=== PATIENT | female | born 1995 | race Caucasian/White ===

== ENCOUNTER 2021-08-11 18:13 | Outpatient (CLI) | payer SELFPAY ==
[~2021-08-11] VITALS: Ht 149.9 cm; Wt 66.5 kg
[2021-08-11 18:19] VITALS: BP 100/55
[2021-08-11 18:40] VITALS: BP 100/55
[2021-08-11 18:51] LABS: BILIRUBIN,URINE NEGATIVE (NEGATIVE); CLARITY,URINE CLEAR; COLOR,URINE YELLOW; GLUCOSE, URINE (UA) NEGATIVE (NEGATIVE); KETONES,URINE NEGATIVE (NEGATIVE); LEUKOCYTE ESTERASE ,URINE TRACE (NEGATIVE); NITRITE,URINE NEGATIVE (NEGATIVE); PH,URINE 7.5 (5-9); PROTEIN,URINE NEGATIVE (NEGATIVE)
[2021-08-11 19:16] LABS: BACTERIA,URINE TRACE /HPF; WBC,URINE 0-2 /HPF
[2021-08-11 19:48] LABS: AMPHETAMINE SCREEN, URINE NEGATIVE (NEGATIVE); BARBITURATE SCREEN URINE NEGATIVE (NEGATIVE); BENZODIAZEPINES SCREEN URINE NEGATIVE (NEGATIVE); CANNABINOID SCREEN, URINE POSITIVE (NEGATIVE); COCAINE SCREEN URINE NEGATIVE (NEGATIVE); METHADONE STAT NEGATIVE (NEGATIVE); METHAMPHETAMINE SCREEN URINE S NEGATIVE (NEGATIVE); OPIATE SCREEN URINE NEGATIVE (NEGATIVE); OXYCODONE STAT NEGATIVE (NEGATIVE); PROPOXYPHENE STAT NEGATIVE (NEGATIVE); TRICYCLIC ANTIDEPRESSANTS SCRE NEGATIVE (NEGATIVE)
[2021-08-11] MEDS ORDERED: DIPH25CA79 PO (20:02)
[2021-08-11] MEDS ORDERED: MELA1TAB20 PO (20:02)
--- NOTE | 2021-08-12 07:52 | Physician Query-Final Dx ---
DANIEL08/12/21 0752: Clinic Account Progress/Dx Physician Query: Please give diagnosis Please include # weeks gestation Date of Service Aug 11, 2021 at 18:13 JOVANA GALLEGOS DO 08/12/21 1319: Clinic Account Progress/Dx DIAGNOSIS: Diagnosis 31 weeks vaginal discharge DANIEL,JulAug 12, 2021 07:52 JOVANA GALLEGOS DO Aug 12, 2021 13:19
== END 2021-08-11 20:10 | disposition home or self-care (01) ==
LOC: LDRP 18:13 → WSo 18:13
PROVIDERS: ATTEND Family Medicine
DX: O34.63 Maternal care for abnormality of vagina, third trimester (principal); Z3A.31 31 weeks gestation of pregnancy
CPT/HCPCS: 80306; 81000; G0463; 99213

== ENCOUNTER 2021-09-05 18:59 | Outpatient (CLI) | payer MEDICAID ==
[~2021-09-05] VITALS: Ht 149.9 cm; Wt 67.5 kg
[~2021-09-05 18:59] MED LIST: DIPH25CA79 PO; MELA1TAB20 PO
[2021-09-05 19:32] VITALS: BP 106/59
[2021-09-05] MEDS ORDERED: PROM25AM11 IJ (19:44)
[2021-09-05] MEDS ORDERED: ONDANSETRON 4 MG (ZOFRAN) ORAL DISSOLVE TAB PO ONE (19:45)
[2021-09-05] MEDS ORDERED: ONDANSETRON 4 MG (ZOFRAN) ORAL DISSOLVE TAB ONE (19:45)
--- NOTE | 2021-09-08 08:06 | Physician Query-Final Dx ---
DANIEL,09/08/21 0806: Clinic Account Progress/Dx Physician Query: Please give diagnosis Please include # weeks gestation Date of Service Sep 05, 2021 at 18:59 RONNY PERALES DO 09/08/21 1003: Clinic Account Progress/Dx DIAGNOSIS: Diagnosis 32 week IUP Pelvic pressure DANIEL,JulSep 08, 2021 08:06 RONNY PERALES DO Sep 08, 2021 10:03
== END 2021-09-05 19:55 ==
LOC: LDRP 18:59 → WSo 18:59
PROVIDERS: ATTEND Obstetrics & Gynecology
DX: O26.893 Other specified pregnancy related conditions, third trimester (principal); Z3A.32 32 weeks gestation of pregnancy
CPT/HCPCS: 99212

== ENCOUNTER 2021-09-24 08:26 | Inpatient (IN) | payer MEDICAID ==
[~2021-09-24] VITALS: Ht 150 cm; Wt 70.8 kg
[2021-09-24] VITALS (35 sets, daily range): BP systolic 85–127; BP diastolic 42–74
[~2021-09-24 08:26] MED LIST changes: +PROM25AM11 IJ
[2021-09-24 09:20] LABS: BILIRUBIN,URINE NEGATIVE (NEGATIVE); CLARITY,URINE CLEAR; COLOR,URINE YELLOW; GLUCOSE, URINE (UA) NEGATIVE (NEGATIVE); KETONES,URINE NEGATIVE (NEGATIVE); LEUKOCYTE ESTERASE ,URINE NEGATIVE (NEGATIVE); NITRITE,URINE NEGATIVE (NEGATIVE); PROTEIN,URINE NEGATIVE (NEGATIVE)
[2021-09-24 09:32] LABS: BACTERIA,URINE NEGATIVE /HPF; WBC,URINE RARE /HPF
[2021-09-24] MEDS ORDERED: MINERAL OIL 30 ML OIL TOP PRN (09:45)
[2021-09-24] MEDS: D5 LR IV SOLUTION 1,000 ML IV SCH ×2 (10:27→11:32)
[2021-09-24] MEDS ORDERED: ONDANSETRON 4 MG/2 ML (SDV) Z0FRAN IVP PRN (10:45)
[2021-09-24] MEDS ORDERED: ONDANSETRON 4 MG/2 ML (SDV) Z0FRAN ONE (10:48)
--- NOTE | 2021-09-24 10:54 | History & Physical-OB ---
OB - Chief Complaint & HPI Date/Time Date of Admission: Date of Admission: Sep 24, 2021 at 9:17 am Date seen by a Provider: Sep 24, 2021 Time Seen by a Provider: 10:55 Chief Complaint/History OB-Reason for Admission/Chief: Onset of Labor Hx : 9 Hx Para: 7 Expected Date of Delivery: Oct 13, 2021 Gestational Age in Weeks: 37 Gestational Age in Days: 2 Admission Nurse Assessment Rev: Yes History of Labs A pos Antibody neg GBS neg Allergies and Home Medications Allergies Coded Allergies: adhesive tape (Verified Allergy, Unknown, 08/11/21) metoclopramide (Verified Allergy, Unknown, 08/11/21) Makes patient feel anxious Patient Home Medication List Home Medication List Reviewed: Yes Diphenhydramine HCl (Benadryl) 25 Mg Capsule, 50 MG PO HS, (Reported) Entered as Reported by: ANANTH PERRY on 08/11/212001 Promethazine HCl (Phenergan) 25 Mg/1 Ml Ampul, 25 MG IJ PRN, (Reported) Entered as Reported by: COTY MONTGOMERY on 09/05/211943 OB - History Hx of Present Care: Yes Ultrasounds: Normal mid trimester US Obstetrical Complications: None Medical Complications: None Other Concerns: late transfer of care, patient adopting out. Patient Past Medical History n/a Social History/Family History 2nd Hand Smoke Exposure: No OB - Admission Exam Physical Exam HEENT: NCAT Heart: Rhythm Normal Lungs: Clear Abdomen: Gravid Extremities: Normal Reflexes: Normal Cervical Dilatation: 5cm Effacement: 75% Station: -1 Membranes: Intact Heart Rate: 130's Accelerations: Accelerations Present Decelerations: No Decelerations Short Term Variability: Present Correction Variability: Average (6-25) Contractions on Admission: 6-10 Minutes Apart Intensity: Mild Labs Laboratory Tests Test 09/24/21 09:10 Range/Units Urine Color YELLOW Urine Clarity CLEAR Urine pH 6.0 5-9 Urine Specific [place] 1.020 1.016-1.022 Urine Protein NEGATIVE NEGATIVE Urine Glucose (UA) NEGATIVE NEGATIVE Urine Ketones NEGATIVE NEGATIVE Urine Nitrite NEGATIVE NEGATIVE Urine Bilirubin NEGATIVE NEGATIVE Urine Urobilinogen 0.2 < = 1.0 MG/DL Urine Leukocyte Esterase NEGATIVE NEGATIVE Urine RBC (Auto) 3+ H NEGATIVE Urine RBC 2-5 H /HPF Urine WBC RARE /HPF Urine Squamous Epithelial Cells 2-5 /HPF Urine Crystals NONE /LPF Urine Bacteria NEGATIVE /HPF Urine Casts NONE /LPF Urine Mucus NEGATIVE /LPF Urine Culture Indicated NO OB - Assessment/Plan/Diagnosis Assessment Assessment: active labor Admission Dx 25 yo @ 37.2 Active labor GBS neg Admission Status: Inpatient Order (span 2 midnights) Reason for Inpatient Admission: 37 week active labor Plan Plan: Expectant Management RONNY PERALES DO Sep 24, 2021 10:54 am
[2021-09-24 11:05] LABS: BASOPHILS % (AUTO) 0 % (0-10); EOSINOPHILS % (AUTO) 1 % (0-10); HEMATOCRIT 34 % (35-52); LYMPHOCYTES # (AUTO) 1.5 10^3/uL (1.0-4.0); LYMPHOCYTES % (AUTO) 22 % (12-44); MEAN CORPUSCULAR HEMOGLOBIN 24 pg (25-34); MEAN CORPUSCULAR HGB CONC 30 g/dL (32-36); MEAN CORPUSCULAR VOLUME 81 fL (80-99); MEAN PLATELET VOLUME 12.3 fL (9.0-12.2); MONOCYTES # (AUTO) 0.6 10^3/uL (0.0-1.0); MONOCYTES % (AUTO) 9 % (0-12); NEUTROPHILS # (AUTO) 4.4 10^3/uL (1.8-7.8); NEUTROPHILS % (AUTO) 67 % (42-75); PLATELET COUNT 179 10^3/uL (130-400); WHITE BLOOD COUNT 6.5 10^3/uL (4.3-11.0)
[2021-09-24] MEDS ORDERED: BUPIVACAINE 0.25% 30 ML (SENSORCAINE) VIAL ONE (11:21)
[2021-09-24] MEDS ORDERED: fentaNYL INJ 100 MCG/2 ML AMP ONE (11:21)
[2021-09-24] MEDS ORDERED: fentaNYL 2 mcg/ml BUPIVA 0.125 100 ML ONE (11:25)
[2021-09-24] MEDS ORDERED: fentaNYL 2 mcg/ml BUPIVA 0.125 100 ML IV SCH (12:00)
[2021-09-24] MEDS ORDERED: NALOXONE 0.4 MG/ML 1 ML (NARCAN) VIAL IV PRN (12:00)
[2021-09-24] MEDS ORDERED: CATHETER FLUSH 10 ML SYR IV PRN (12:00)
[2021-09-24] MEDS ORDERED: LACTATED RINGERS 1,000 ML IV ONE (12:00)
[2021-09-24] MEDS ORDERED: MINERAL OIL CONCENTRATE 99.9% 15 ML UDC PO PRN (12:15)
[2021-09-24] MEDS ORDERED: OXYTOCIN PRE-MIX DRIP 500 ML IV SCH ×3 (12:30→16:45)
[2021-09-24] MEDS ORDERED: diphenhydrAMINE 50 MG/ML INJ (BENADRYL) IM PRN (13:15)
[2021-09-24] MEDS ORDERED: CATHETER FLUSH 10 ML SYR IV SCH ×2 (14:00→22:00)
[2021-09-24] MEDS ORDERED: LIDOCAINE/EPI 2% 1:200,00 (XYLOCAINE) 10 ML VIAL ONE (16:44)
[2021-09-24] MEDS ORDERED: TETANUS,DIPTH,PERTUSS P/F (BOOSTRIX) 0.5 ML VIAL IM ONE (16:45)
[2021-09-24] MEDS ORDERED: WITCH HAZEL(TUCKS) 40 EA JAR TOP PRN (16:45)
[2021-09-24] MEDS ORDERED: BENZOCAINE/MENTHOL (DERMOPLAST) 56 ML CAN TP PRN (16:45)
[2021-09-24] MEDS ORDERED: MEASLES,MUMPS,RUBELLA 1 EA INJ SQ ONE (16:45)
[2021-09-24] MEDS ORDERED: DIBUCAINE 1% OINTMENT 30 GM TUBE TOP PRN (16:45)
[2021-09-24] MEDS ORDERED: diphenhydrAMINE 50 MG/ML INJ (BENADRYL) IV PRN (17:15)
[2021-09-24] MEDS ORDERED: KETOROLAC 30 MG/ML VIAL ONE (20:12)
[2021-09-24] MEDS ORDERED: KETOROLAC 30 MG/ML VIAL IVP ONE (20:15)
--- NOTE | 2021-09-24 20:42 | OB Labor & Delivery Record ---
Vag Delivery Note Vag Delivery Note Date of Delivery: 09/24/21 Preoperative Diagnosis: Shanique Bowers is a (25 /Para 9 / 7,Gestational Age (wks)37with [] Postoperative Diagnosis: Same Surgeon: ALEJANDRA MARLOW Director Of Market Intelligence: [] Anesthesia: epidural Delivery Type: Findings: vertex, short umbilical cord, marginal cord insertion, suspected partial abruption Viable female , apgars 9/9, weight (see nurse's notes) Lacerations: none Intact placenta with 3 vessel cord. No nuchal cord, body cord or shoulder dystocia Cytotec 800 mcg placed for hemorrhage prophylaxis Estimated Blood Loss: 300 ml Complications: None Condition: Stable Description of Procedure: The patient is a 25 year old female who presented for induction with planned adoptive parents present. She was admitted and informed consent was obtained. Her labor course was remarkable for bleeding. Category 1 heart tones encountered. She progressed to complete dilatation and began to push. She was then set up for delivery. The infant's head was delivered atraumatically in the OA position. The shoulders and remainder of the 's body were then delivered without difficulty. Upon delivery, the head was held below the level of the perineum and the mouth and nares were bulb suctioned. The cord was doubly clamped and cut and the infant was handed off to the pediatric staff. An intact placenta with 3-vessel cord delivered via [place] and there was found to be minimal bleeding. Evaluation of the placenta revealed marginal cord insertion, concern for partial villamentous insertion with peripheral blood clot consistent with partial abruption. Additionally, amniotic fluid that delivered with the was port-wine stained. Vigorous fundal massage was performed and the fundus was found to be firm. IV oxytocin was given. Examination of the vagina and perineum revealed no lacerations. Sponge, instrument and needle counts were correct. Mom and baby were both in stable condition in the labor suite. Vitals - Labs Vital Signs - I&O Vital Signs Date Time Temp Pulse Resp B/P (MAP) Pulse Ox O2 Delivery O2 Flow Rate FiO2 09/24/21 20:14 36.0 94 16 114/63 (80) 100 09/24/21 17:53 82 14 109/58 (75) 09/24/21 17:39 81 14 111/55 (73) 09/24/21 17:24 36.6 94 16 127/58 (81) 100 09/24/21 17:08 104 20 113/55 (74) 100 09/24/21 16:50 92 18 118/59 (78) 100 09/24/21 16:35 95 20 108/59 (75) 100 09/24/21 16:20 112 20 98/55 (69) 100 09/24/21 16:05 88 16 107/57 (74) 100 09/24/21 15:50 80 20 113/61 (78) 100 09/24/21 15:35 102 18 102/57 (72) 100 09/24/21 15:20 88 20 105/56 (72) 100 09/24/21 15:05 83 20 110/57 (74) 100 09/24/21 14:50 96 16 97/52 (67) 100 09/24/21 14:35 102 18 103/53 (70) 100 09/24/21 14:20 118 17 107/60 (76) 95 09/24/21 14:05 89 14 114/71 (85) 100 09/24/21 13:50 87 20 109/58 (75) 100 09/24/21 13:35 104 18 103/51 (68) 100 09/24/21 13:20 82 16 102/58 (73) 100 09/24/21 13:05 94 15 101/56 (71) 100 09/24/21 12:50 107 16 106/55 (72) 100 09/24/21 12:30 93 15 104/64 (77) 100 09/24/21 12:20 89 16 96/54 (68) 100 09/24/21 12:15 107 18 108/55 (72) 100 09/24/21 12:10 107 16 100/49 (66) 100 09/24/21 12:05 96 14 107/56 (73) 100 09/24/21 12:00 95 15 85/42 (56) 100 09/24/21 11:55 106 16 106/57 (73) 100 09/24/21 11:50 117 18 114/54 (74) 100 09/24/21 11:40 111 16 122/58 (79) 95 Room Air 09/24/21 11:35 108 18 123/63 (83) 99 Room Air 09/24/21 11:30 36.5 98 15 124/74 (91) 92 Room Air 09/24/21 08:45 36.5 111 20 99 Room Air Labs Laboratory Tests 09/24/21 09:10: Urine Color YELLOW, Urine Clarity CLEAR, Urine pH 6.0, Urine Specific [place] 1.020, Urine Protein NEGATIVE, Urine Glucose (UA) NEGATIVE, Urine Ketones NEGATIVE, Urine Nitrite NEGATIVE, Urine Bilirubin NEGATIVE, Urine Urobilinogen 0.2, Urine Leukocyte Esterase NEGATIVE, Urine RBC (Auto) 3+H, Urine RBC 2-5H, Urine WBC RARE, Urine Squamous Epithelial Cells 2-5, Urine Crystals NONE, Urine Bacteria NEGATIVE, Urine Casts NONE, Urine Mucus NEGATIVE, Urine Culture Indicated NO 09/24/21 10:40: White Blood Count 6.5, Red Blood Count 4.16, Hemoglobin 10.0L, Hematocrit 34L, Mean Corpuscular Volume 81, Mean Corpuscular Hemoglobin 24L, Mean Corpuscular Hemoglobin Concent 30L, Red Cell Distribution Width 16.1H, Platelet Count 179, Mean Platelet Volume 12.3H, Immature Granulocyte % (Auto) 1, Neutrophils (%) (Auto) 67, Lymphocytes (%) (Auto) 22, Monocytes (%) (Auto) 9, Eosinophils (%) (Auto) 1, Basophils (%) (Auto) 0, Neutrophils # (Auto) 4.4, Lymphocytes # (Auto) 1.5, Monocytes # (Auto) 0.6, Eosinophils # (Auto) 0.0, Basophils # (Auto) 0.0, Immature Granulocyte # (Auto) 0.1 ALEJANDRA MARLOW MD Sep 24, 2021 20:42
[2021-09-24] MEDS ORDERED: ACETAMINOPHEN 500 MG TAB (TYLENOL) ONE (21:17)
[2021-09-24] MEDS: ACETAMINOPHEN 500 MG TAB (TYLENOL) PO SCH (21:20)
[2021-09-24] MEDS: DOCUSATE SODIUM 100 MG (COLACE) CAP PO SCH (21:20)
[2021-09-25] MEDS ORDERED: IBUPROFEN 600 MG (MOTRIN) TAB PO ONE (03:03)
[2021-09-25 03:06] VITALS: BP 101/59
[2021-09-25] MEDS: IBUPROFEN 600 MG (MOTRIN) TAB PO SCH ×4 (03:06→18:18)
[2021-09-25] MEDS: ACETAMINOPHEN 500 MG TAB (TYLENOL) PO SCH ×3 (05:43→18:19)
[2021-09-25 06:14] LABS: BASOPHILS % (AUTO) 0 % (0-10); EOSINOPHILS # (AUTO) 0.1 10^3/uL (0.0-0.3); EOSINOPHILS % (AUTO) 1 % (0-10); HEMATOCRIT 31 % (35-52); HEMOGLOBIN 9.4 g/dL (11.5-16.0); LYMPHOCYTES % (AUTO) 24 % (12-44); MEAN CORPUSCULAR HEMOGLOBIN 25 pg (25-34); MEAN CORPUSCULAR HGB CONC 30 g/dL (32-36); MEAN CORPUSCULAR VOLUME 81 fL (80-99); MEAN PLATELET VOLUME 12.7 fL (9.0-12.2); MONOCYTES # (AUTO) 0.9 10^3/uL (0.0-1.0); MONOCYTES % (AUTO) 11 % (0-12); NEUTROPHILS # (AUTO) 5.3 10^3/uL (1.8-7.8); NEUTROPHILS % (AUTO) 64 % (42-75); PLATELET COUNT 171 10^3/uL (130-400); WHITE BLOOD COUNT 8.3 10^3/uL (4.3-11.0)
[2021-09-25] MEDS ORDERED: PRENATAL VITAMIN 1 EA TAB PO SCH (07:00)
[2021-09-25] MEDS ORDERED: DOCUSATE CALCIUM 240 MG (SURFAK) CAP PO SCH (09:00)
[2021-09-25 09:15] VITALS: BP 108/63
[2021-09-25] MEDS: DOCUSATE SODIUM 100 MG (COLACE) CAP PO SCH (09:19)
--- NOTE | 2021-09-25 09:51 | Postpartum Progress Note ---
Note Note Day # 1 Subjective: Patient is without complaints. Ambulating, voiding. Tolerating a regular diet without nausea or vomiting. Normal lochia. Pain is well controlled with oral pain medications. Objective: Physical Exam: General - Alert and oriented, no apparent distress Abdomen - Soft, appropriately tender to palpation, non-distended, fundus firm at umbilicus Extremities - no edema, negative Medardo's bilaterally Assessment: Post- day # 1, status post vaginal delivery. Recovering well, hemodynamically stable Acute blood loss anemia Plan: Routine care. Encourage breast feeding. Encourage ambulation. Ferrous sulfate supplementation. Plan for discharge this evening or tomorrow morning Vitals - Labs Vital Signs - I&O Vital Signs Date Time Temp Pulse Resp B/P (MAP) Pulse Ox O2 Delivery O2 Flow Rate FiO2 09/25/21 03:06 37.2 76 18 101/59 (73) 09/24/21 23:30 36.4 99 18 99/56 (70) 100 09/24/21 20:14 36.0 94 16 114/63 (80) 100 09/24/21 17:53 82 14 109/58 (75) 09/24/21 17:39 81 14 111/55 (73) 09/24/21 17:24 36.6 94 16 127/58 (81) 100 09/24/21 17:08 104 20 113/55 (74) 100 09/24/21 16:50 92 18 118/59 (78) 100 09/24/21 16:35 95 20 108/59 (75) 100 09/24/21 16:20 112 20 98/55 (69) 100 09/24/21 16:05 88 16 107/57 (74) 100 09/24/21 15:50 80 20 113/61 (78) 100 09/24/21 15:35 102 18 102/57 (72) 100 09/24/21 15:20 88 20 105/56 (72) 100 09/24/21 15:05 83 20 110/57 (74) 100 09/24/21 14:50 96 16 97/52 (67) 100 09/24/21 14:35 102 18 103/53 (70) 100 09/24/21 14:20 118 17 107/60 (76) 95 09/24/21 14:05 89 14 114/71 (85) 100 09/24/21 13:50 87 20 109/58 (75) 100 09/24/21 13:35 104 18 103/51 (68) 100 09/24/21 13:20 82 16 102/58 (73) 100 09/24/21 13:05 94 15 101/56 (71) 100 09/24/21 12:50 107 16 106/55 (72) 100 09/24/21 12:30 93 15 104/64 (77) 100 09/24/21 12:20 89 16 96/54 (68) 100 09/24/21 12:15 107 18 108/55 (72) 100 09/24/21 12:10 107 16 100/49 (66) 100 09/24/21 12:05 96 14 107/56 (73) 100 09/24/21 12:00 95 15 85/42 (56) 100 09/24/21 11:55 106 16 106/57 (73) 100 09/24/21 11:50 117 18 114/54 (74) 100 09/24/21 11:40 111 16 122/58 (79) 95 Room Air 09/24/21 11:35 108 18 123/63 (83) 99 Room Air 09/24/21 11:30 36.5 98 15 124/74 (91) 92 Room Air I & O 09/25/21 07:00 Intake Total 1500 ml Output Total 700 ml Balance 800 ml Labs Laboratory Tests 09/24/21 10:40: White Blood Count 6.5, Red Blood Count 4.16, Hemoglobin 10.0L, Hematocrit 34L, Mean Corpuscular Volume 81, Mean Corpuscular Hemoglobin 24L, Mean Corpuscular Hemoglobin Concent 30L, Red Cell Distribution Width 16.1H, Platelet Count 179, Mean Platelet Volume 12.3H, Immature Granulocyte % (Auto) 1, Neutrophils (%) (Auto) 67, Lymphocytes (%) (Auto) 22, Monocytes (%) (Auto) 9, Eosinophils (%) (Auto) 1, Basophils (%) (Auto) 0, Neutrophils # (Auto) 4.4, Lymphocytes # (Auto) 1.5, Monocytes # (Auto) 0.6, Eosinophils # (Auto) 0.0, Basophils # (Auto) 0.0, Immature Granulocyte # (Auto) 0.1 09/25/21 05:23: White Blood Count 8.3, Red Blood Count 3.84, Hemoglobin 9.4L, Hematocrit 31L, Mean Corpuscular Volume 81, Mean Corpuscular Hemoglobin 25, Mean Corpuscular Hemoglobin Concent 30L, Red Cell Distribution Width 16.3H, Platelet Count 171, Mean Platelet Volume 12.7H, Immature Granulocyte % (Auto) 1, Neutrophils (%) (Auto) 64, Lymphocytes (%) (Auto) 24, Monocytes (%) (Auto) 11, Eosinophils (%) (Auto) 1, Basophils (%) (Auto) 0, Neutrophils # (Auto) 5.3, Lymphocytes # (Auto) 2.0, Monocytes # (Auto) 0.9, Eosinophils # (Auto) 0.1, Basophils # (Auto) 0.0, Immature Granulocyte # (Auto) 0.1 BETO KLEIN APRN Sep 25, 2021 09:51
[2021-09-25] MEDS ORDERED: DIBU30OI TOP (09:58)
[2021-09-25] MEDS ORDERED: BENZ78AE5 TP (09:58)
[2021-09-25] MEDS ORDERED: IBUP-844 PO (09:58)
[2021-09-25] MEDS ORDERED: DOCU100C37 PO (09:58)
--- NOTE | 2021-09-25 09:59 | Discharge Inst-Women's Service ---
Discharge Inst-Women's Serv Depart Medication/Instructions New, Converted or Re-Newed RX: Transmitted to Pharmacy Consults/Follow Up Additional Follow Up: Yes (6wk PP appt) Activity Activity: Activity as Tolerated Driving Instructions: No Driving for 1 Week NO SMOKING: NO SMOKING Nothing Inside Vagina: No Douching, No Monserrate, No Tampons Diet Discharge Diet: No Restrictions Symptoms to Report to : Pain Increased, Fever Over 101 Degrees F, Vaginal Bleeding Increase For Any Problems or Questions: Contact Your Physician BETO KLEIN APRN Sep 25, 2021 09:59
[2021-09-25 12:45] VITALS: BP 103/55
--- NOTE | 2021-09-25 13:39 | Anesthesia-Regional Post-Op ---
Regional Patient Condition Mental Status: Alert, Oriented x3 Circulation: Same as Pre-Op Headache: Absent Sensation: Full Recovery Motor Block: Absent Post Op Complications Complications None Follow Up Care/Instructions Patient Instructions None needed. Anesthesia/Patient Condition Patient is doing well, no complaints, stable vital signs, no apparent adverse anesthesia problems. No complications reported per nursing. JOSESITO BLEVINS CRNA Sep 25, 2021 13:39
[2021-09-25 17:15] VITALS: BP 102/57
[2021-09-25 20:20] VITALS: BP 102/57
== END 2021-09-25 20:20 | disposition home or self-care (01) | DRG 805 ==
LOC: WSo 08:26 → LDRP 08:26 → WSo 09:17 → LDRP 18:45
PROVIDERS: ADMIT Obstetrics & Gynecology; ATTEND Obstetrics & Gynecology
PROC: 10E0XZZ Delivery of Products of Conception, External Approach (ICD-10-PCS; principal; 2021-09-24)
DX: O69.3XX0 Labor and delivery complicated by short cord, not applicable or unspecified (principal); O45.93 Premature separation of placenta, unspecified, third trimester; Z37.0 Single live birth; D62 Acute posthemorrhagic anemia; Z3A.37 37 weeks gestation of pregnancy; O90.81 Anemia of the puerperium
CPT/HCPCS: 36415; 81000; 85025; 86850; 86900; 86901; 99212